=== PATIENT | female | born 1990 | race Caucasian/White ===

== ENCOUNTER → 2019-04-23 | Outpatient (CLI) | payer OTHER ==
--- NOTE | 2019-04-23 14:30 | RAD ---
PQRS Compliance Statement: One or more of the following individualized dose reduction techniques were utilized for this examination: 1. Automated exposure control 2. Adjustment of the mA and/or kV according to patient size 3. Use of iterative reconstruction technique CT abdomen/pelvis without contrast 04/23/2019 12:00 AM INDICATION: Right flank pain, hematuria COMPARISON: None available TECHNIQUE: Multiple axial CT images of the abdomen and pelvis were obtained without intravenous contrast. Coronal and sagittal reformats are provided. FINDINGS: Lung bases are clear. Heart size is within normal limits. Evaluation of the solid abdominal viscera is limited by lack of intravenous contrast. Liver, spleen, bilateral adrenal glands, pancreas and gallbladder are normal in appearance. The abdominal aorta is normal in course and caliber. There are no pathologically enlarged lymph nodes in the abdomen and pelvis. There is no abdominal free fluid. There is no free intraperitoneal air. Small and large bowel are normal in caliber. There is no evidence for bowel obstruction. There are no pericolonic inflammatory changes. A normal, nondilated appendix is visualized without adjacent inflammatory changes. There is a cystic lesion in the right paracolic gutter measuring 4.3 x 3.4 cm. A separate right ovary is not definitively visualized. Uterus and left adnexa appear normal by CT. Consideration may be given for a right ovarian cyst/dominant follicle versus an enteric duplication cyst. The kidneys are relatively symmetric in appearance. There is no suspicious renal mass within the limitations of a noncontrast examination. There is no hydronephrosis. There are no calculi within the kidneys, ureters or urinary bladder. Urinary bladder is within normal limits given degree of distention. No suspicious osseous abnormality is identified. Mild anterior wedge deformity of T11 and T12 which appears chronic. IMPRESSION: 1. Cystic lesion adjacent to the appendix and inferior to the cecum measuring 4.3 x 3.4 cm in transaxial dimensions. Differential considerations would include an ovarian cyst (dominant follicle) versus esophageal duplication cyst. Further characterization with ultrasound may be of benefit. Next on 2. No evidence for obstructive uropathy. Specifically, no calculi are identified in the kidneys, ureters or urinary bladder. No hydronephrosis. Electronically signed by: Barbara Sellers MD (04/23/2019 2:27 PM) [id number]
== END | disposition home or self-care (01) ==
LOC: DXRAD 13:45
PROVIDERS: ATTEND Physician Assistant
DX: K63.89 Other specified diseases of intestine (principal)
CPT/HCPCS: 74176

== ENCOUNTER 2019-06-28 17:41 | Emergency (ER) | payer OTHER ==
[2019-06-28] MEDS ORDERED: IV NORMAL SALINE 1,000ML 1,000 ML IV ONE (18:00)
[2019-06-28 18:05] VITALS: BP 161/83
[2019-06-28 18:17] LABS: BASO # 0.1 x10^3/uL (0.0-0.2); BASO % 0 % (0-3); EOS % 0 % (0-3); HEMATOCRIT 42.6 % (36.0-47.0); HEMOGLOBIN 14.5 g/dL (12.0-15.5); LYMPH # 1.8 x10^3/uL (1.0-4.8); LYMPH % 13 % (24-48); MEAN CORPUSCULAR HEMOGLOBIN 31 pg (25-35); MEAN CORPUSCULAR HGB CONC 34 g/dL (31-37); MEAN CORPUSCULAR VOLUME 91 fL (79-100); MONO # 0.7 x10^3/uL (0.0-1.1); MONO % 5 % (0-9); NEUT # 12.1 x10^3uL (1.8-7.7); NEUT % 82 % (31-73); PLATELET COUNT 336 x10^3/uL (140-400); RED BLOOD COUNT 4.67 x10^6/uL (3.50-5.40); RED CELL DISTRIBUTION WIDTH 13.3 % (11.5-14.5); WHITE BLOOD COUNT 14.7 x10^3/uL (4.0-11.0)
[2019-06-28] MEDS ORDERED: ONDANSETRON PF 4 MG/2 ML VIAL. IV ONE (18:30)
[2019-06-28] MEDS ORDERED: KETOROLAC 30 MG/ML VIAL. IV ONE (18:30)
[2019-06-28 18:45] LABS: BACTERIA,URINE 0 /HPF (0-FEW); BILIRUBIN,URINE NEG (NEG); CLARITY,URINE HAZY; COLOR,URINE YELLOW; GLUCOSE,URINE NEG (NEG); NITRITE,URINE NEG (NEG); SQUAMOUS EPITHELIAL CELL,UR OCC /LPF; U PREG PATIENT NEGATIVE (NEG); UROBILINOGEN,URINE 0.2 mg/dL (0.2 mg/dL)
--- NOTE | 2019-06-28 18:53 | PHYS DOC ---
Past History Past Medical History: No Pertinent History (LOPEZ LASSITER MD) Past Surgical History: No Surgical History (LOPEZ LASSITER MD) Alcohol Use: None Drug Use: None (LOPEZ LASSITER MD) Adult General Chief Complaint Chief Complaint: NAUSEA/VOMITING/DIARRHEA HPI HPI 28-year-old female presents to the emergency department with complaints of right side pain, off and on times one month. She states she was previously diagnosed with ovarian cysts, she is follow up with her OB and these were deemed nonsurgical. She presents today with acute right flank pain, nausea, vomiting. The pain does not radiate to the groin. She is currently on her menstrual cycle. She denies any dysuria. Nothing makes her pain worse, nothing makes her pain better. (LOPEZ LASSITER MD) Review of Systems Review of Systems Constitutional: Denies fever or chills [] Eyes: Denies change in visual acuity, redness, or eye pain [] HENT: Denies nasal congestion or sore throat [] Respiratory: Denies cough or shortness of breath [] Cardiovascular: No additional information not addressed in HPI [] GI: Right flank pain, nausea, vomiting, denies abdominal pain : Denies dysuria or hematuria [] Musculoskeletal: Right flank pain Integument: Denies rash or skin lesions [] Neurologic: Denies headache, focal weakness or sensory changes [] All other systems were reviewed and found to be within normal limits, except as documented in this note. (LOPEZ LASSITER MD) Current Medications Current Medications Current Medications Medications (Trade) Dose Ordered Sig/Rickey Start Time Stop Time Status Last Admin Dose Admin Ketorolac Tromethamine (Toradol 30mg Vial) 30 mg 1X ONCE 06/28/19 18:30 06/28/19 18:31 DC 06/28/19 18:23 30 MG Ondansetron HCl (Zofran) 4 mg 1X ONCE 06/28/19 18:30 06/28/19 18:31 DC 06/28/19 18:23 4 MG Sodium Chloride 1,000 ml @ 1,000 mls/hr 1X ONCE 06/28/19 18:00 06/28/19 18:59 06/28/19 18:23 1,000 MLS/HR (LOPEZ LASSITER MD) Allergies Allergies Allergies Coded Allergies Type Severity Reaction Last Updated Verified No Known Drug Allergies 06/28/19 No (LOPEZ LASSITER MD) Physical Exam Physical Exam Constitutional: Well developed, well nourished, no acute distress, non-toxic appearance. [] HENT: Normocephalic, atraumatic, bilateral external ears normal, oropharynx moist, no oral exudates, nose normal. [] Eyes: PERRLA, EOMI, conjunctiva normal, no discharge. [] Neck: Normal range of motion, no tenderness, supple, no stridor. [] Cardiovascular:Heart rate regular rhythm, no murmur [] Lungs & Thorax: Bilateral breath sounds clear to auscultation [] Abdomen: Bowel sounds normal, soft, no tenderness, no masses, no pulsatile masses. [] Skin: Warm, dry, no erythema, no rash. [] Back: No tenderness, no CVA tenderness. [] Extremities: No tenderness, no cyanosis, no clubbing, ROM intact, no edema. [] Neurologic: Alert and oriented X 3, normal motor function, normal sensory function, no focal deficits noted. [] Psychologic: Affect normal, judgement normal, mood normal. [] (LOPEZ LASSITER MD) Current Patient Data Vital Signs Vital Signs Date Time Temp Pulse Resp B/P (MAP) Pulse Ox O2 Delivery O2 Flow Rate FiO2 06/28/19 18:05 69 18 100 Room Air Lab Results Laboratory Tests Test 06/28/19 18:00 White Blood Count 14.7 x10^3/uL (4.0-11.0) H Red Blood Count 4.67 x10^6/uL (3.50-5.40) Hemoglobin 14.5 g/dL (12.0-15.5) Hematocrit 42.6 % (36.0-47.0) Mean Corpuscular Volume 91 fL (79-100) Mean Corpuscular Hemoglobin 31 pg (25-35) Mean Corpuscular Hemoglobin Concent 34 g/dL (31-37) Red Cell Distribution Width 13.3 % (11.5-14.5) Platelet Count 336 x10^3/uL (140-400) Neutrophils (%) (Auto) 82 % (31-73) H Lymphocytes (%) (Auto) 13 % (24-48) L Monocytes (%) (Auto) 5 % (0-9) Eosinophils (%) (Auto) 0 % (0-3) Basophils (%) (Auto) 0 % (0-3) Neutrophils # (Auto) 12.1 x10^3uL (1.8-7.7) H Lymphocytes # (Auto) 1.8 x10^3/uL (1.0-4.8) Monocytes # (Auto) 0.7 x10^3/uL (0.0-1.1) Eosinophils # (Auto) 0.0 x10^3/uL (0.0-0.7) Basophils # (Auto) 0.1 x10^3/uL (0.0-0.2) Urine Collection Type Unknown Urine Color Yellow Urine Clarity Hazy Urine pH 7.0 Urine Specific [place] 1.020 Urine Protein Trace (NEG-TRACE) Urine Glucose (UA) Neg mg/dL (NEG) Urine Ketones (Stick) >=160 mg/dL (NEG) Urine Blood Trace (NEG) Urine Nitrite Neg (NEG) Urine Bilirubin Neg (NEG) Urine Urobilinogen Dipstick 0.2 mg/dL (0.2 mg/dL) Urine Leukocyte Esterase Neg (NEG) Urine RBC 1-2 /HPF (0-2) Urine WBC 1-4 /HPF (0-4) Urine Squamous Epithelial Cells Occ /LPF Urine Bacteria 0 /HPF (0-FEW) Urine Mucus Mod /LPF Urine Test Negative (NEG) (LOPEZ LASSITER MD) EKG EKG [] (LOPEZ LASSITER MD) Radiology/Procedures Radiology/Procedures [] (LOPEZ LASSITER MD) Radiology/Procedures PROCEDURE: CT ABDOMEN WO CONTRAST Exam: CT abdomen and pelvis without contrast INDICATION: Right flank pain TECHNIQUE: Sequential axial images through the abdomen and pelvis obtained without IV contrast. Sagittal and coronal reformatted images were reconstructed from the axial data and reviewed. Comparisons: None FINDINGS: Heart size is normal. No pericardial effusion. Visualized lung bases are clear. No pleural effusion. Evaluation of solid organs is limited secondary to noncontrast technique. Liver, spleen, pancreas, gallbladder and adrenals are unremarkable. No perinephric inflammation or hydronephrosis. No renal or ureteral calculi are identified. Bladder is partially distended and appears unremarkable. Uterus is not enlarged. No abnormal adnexal mass. Large and small bowel are unremarkable. Appendix is normal. No free intra-abdominal air or fluid. No obstruction. Abdominal aorta has a normal course and caliber. No enlarged abdominal lymph nodes are identified. No suspicious osseous lesion or acute fracture. IMPRESSION: No renal or ureteral calculi. No evidence for obstructive uropathy. (MUSA YUSUF MD) Course & Med Decision Making Course & Med Decision Making Pertinent Labs and Imaging studies reviewed. (See chart for details) []28-year-old female presents to the emergency department with complaints of right side pain, off and on times one month. She states she was previously diagnosed with ovarian cysts, she is follow up with her OB and these were deemed nonsurgical. She presents today with acute right flank pain, nausea, vomiting. The pain does not radiate to the groin. She is currently on her menstrual cycle. She denies any dysuria. Nothing makes her pain worse, nothing makes her pain better. Labs and imaging pending. Transfer care to Dr. Yusuf. (LOPEZ LASSITER MD) Course & Med Decision Making 7:30 AM: Patient care was assumed from Dr. Herrmann at 7:00 PM. Patient states that she began expressing some right flank/back pain earlier today, and had a fe w episodes of vomiting. She has not had any urinary symptoms, diarrhea, or any abdominal pain. She states she had a similar episode of pain about a month ago, saw her PCP who did a CT, which showed ovarian cysts. She followed up with her OB and had an ultrasound, but there were deemed to require no other management at this time. She states that she began feeling better, but had a recurrence of her pain today. She has not had any fevers or chills. Repeat physical exam: CONSTITUTIONAL: Well developed, well nourished HEAD: normocephalic, atraumatic EENT: PERRL, EOMI. Conjunctivae normal color, sclerae non-icteric; moist mucous membranes. NECK: Supple, non-tender; no meningismus. LUNGS: Lungs CTA, breathing even and unlabored. Normal air movement. HEART: Regular rate and rhythm, no murmur CHEST: No deformity; non-tender ABDOMEN: The abdomen is soft, and non-tender, no masses or bruits.Right upper quadrant is nontender. Tobar sign is absent. The pelvic and suprapubic areas are nontender. McBurney's point is nontender. . EXTREM: Normal ROM; no deformity, no calf tenderness. Normal pulses palpable in all extremities. There is no pedal edema. SKIN: No rash; no diaphoresis NEURO: Alert; normal speech and cognition; CN's grossly intact; strength grossly intact without focal deficit. BACK: No CVA TTP.There is mild tenderness to palpation to the right paraspinal musculature Initial assessment reveals 28-year-old female, with right flank/back pain, possibly musculoskeletal in nature, given her recent workup, kidney stone is felt to be unlikely. Her physical exam findings do not support an acute gynecological, or abdominal etiology, such as ovarian cyst, PID, or cholecystitis as the cause of the patient's pain. Her abdominal exam is benign. Awaiting chemistry and imaging, for final disposition. 8:10 PM: The patient's condition remains stable. I discussed test results in detail, the uncertain etiology of her symptoms, the need for close follow-up with her PCP for further outpatient evaluation and return precautions. Mus culoskeletal etiology is suspected as the cause of her back pain. (MUSA YUSUF MD) Dragon Disclaimer Dragon Disclaimer This electronic medical record was generated, in whole or in part, using a voice recognition dictation system. (LOPEZ LASSITER MD) Departure Departure: Impression: Primary Impression: Right flank pain Additional Impression: Nausea & vomiting Disposition: 01 HOME, SELF-CARE Condition: STABLE Referrals: CHRIS BAE MD (PCP) Patient Instructions: Back Pain, Adult, Flank Pain, Nausea and Vomiting Additional Instructions: Ibuprofen 400-600 mg every 6 hours may help improve your symptoms. Applying a heating pad to the affected area may help improve your symptoms. The prescribed medications may cause drowsiness-use caution while taking. Scripts Cyclobenzaprine Hcl (CYCLOBENZAPRINE HCL) 10 Mg Tablet 1 TAB PO TID PRN for PAIN, #20 TAB Prov: MUSA YUSUF MD 06/28/19 Ondansetron Hcl (ZOFRAN) 4 Mg Tablet 1 TAB PO Q6HRS for -, #20 TAB Prov: MUSA YUSUF MD 06/28/19 Problem Qualifiers LOPEZ LASSITER MD Jun 28, 2019 18:53 MUSA YUSUF MD Jun 28, 2019 19:33
[2019-06-28 19:36] LABS: ALBUMIN 3.5 g/dL (3.4-5.0); ALBUMIN/GLOBULIN RATIO 1.2 (1.0-1.7); CALCIUM 7.7 mg/dL (8.5-10.1); CREATININE 0.6 mg/dL (0.6-1.0); GFR 120.8; POTASSIUM 3.1 mmol/L (3.5-5.1); TOTAL BILIRUBIN 0.4 mg/dL (0.2-1.0); TOTAL PROTEIN 6.4 g/dL (6.4-8.2)
--- NOTE | 2019-06-28 20:02 | RAD ---
Exam: CT abdomen and pelvis without contrast INDICATION: Right flank pain TECHNIQUE: Sequential axial images through the abdomen and pelvis obtained without IV contrast. Sagittal and coronal reformatted images were reconstructed from the axial data and reviewed. Comparisons: None FINDINGS: Heart size is normal. No pericardial effusion. Visualized lung bases are clear. No pleural effusion. Evaluation of solid organs is limited secondary to noncontrast technique. Liver, spleen, pancreas, gallbladder and adrenals are unremarkable. No perinephric inflammation or hydronephrosis. No renal or ureteral calculi are identified. Bladder is partially distended and appears unremarkable. Uterus is not enlarged. No abnormal adnexal mass. Large and small bowel are unremarkable. Appendix is normal. No free intra-abdominal air or fluid. No obstruction. Abdominal aorta has a normal course and caliber. No enlarged abdominal lymph nodes are identified. No suspicious osseous lesion or acute fracture. IMPRESSION: No renal or ureteral calculi. No evidence for obstructive uropathy. Exposure: One or more of the following in the visualized dose reduction techniques were utilized for this examination: 1. Automated exposure control 2. Adjustment of the MA and/or KV according to patient size 3. Use of iterative of reconstructive technique Electronically signed by: Lydia Card MD (06/28/2019 7:59 PM) [id number]
[2019-06-28] MEDS ORDERED: CYCL-331 PO (20:11)
[2019-06-28] MEDS ORDERED: ONDA4TAB7 PO (20:11)
[2019-06-28] MEDS ORDERED: ACETAMINOPHEN 500 MG TABLET PO ONE (20:15)
[2019-06-28] MEDS ORDERED: POTASSIUM CHLORIDE 20 MEQ TABLET.ER. PO ONE (20:15)
== END 2019-06-28 20:20 | disposition home or self-care (01) ==
LOC: MERGE 17:41 → ER 17:41
DX: R11.2 Nausea with vomiting, unspecified (principal); R10.9 Unspecified abdominal pain
CPT/HCPCS: 36415; 74150; 80053; 81001; 81025; 83690; 85025; 96361; 96374; 96375; 99285; J1885; J2405; J7030